=== PATIENT | female | born 1955 | race Caucasian/White ===

== ENCOUNTER 2017-02-16 12:36 | Emergency (ER) | payer MEDICAID ==
[~2017-02-16] VITALS: Ht 162.6 cm; Wt 81.6 kg
[2017-02-16 12:52] VITALS: BP 102/68
== END 2017-02-16 18:15 | disposition left against medical advice (07) ==
LOC: EDBD 12:36 → ER 12:51
DX: R53.1 Weakness (principal); Z53.21 Procedure and treatment not carried out due to patient leaving prior to being seen by health care provider
CPT/HCPCS: 71010; 93005

== ENCOUNTER 2020-04-11 20:04 | Inpatient (IN) | payer MEDICARE, MEDICAID ==
[~2020-04-11] VITALS: Ht 152.4 cm; Wt 110.6 kg
[2020-04-11 22:10] LABS: Basophils # (auto) 0 10 ^3/uL (0-0.2); Basophils % (auto) 0.5 % (0.0-2.0); Eosinophils # (auto) 0.1 10 ^3/uL (0-0.8); Eosinophils % (auto) 1.7 % (0.0-7.0); Hematocrit 39.1 % (36.0-46.0); Hemoglobin 13.3 g/dL (12.2-16.2); Lymphocytes # (auto) 0.7 10 ^3/uL (0.4-5.4); Lymphocytes % (auto) 11.5 % (10.0-50.0); Mean Corpuscular Hemoglobin 31.1 pg (28.0-32.0); Mean Corpuscular Hgb Conc. 34.1 g/dL (32.0-36.0); Mean Corpuscular Volume 91.2 fL (80.0-100.0); Monocytes # (auto) 0.5 10 ^3/uL (0-1.3); Monocytes % (auto) 7.6 % (0.0-12.0); Neutrophils # (auto) 4.6 10 ^3/uL (1.6-8.6); Neutrophils % (auto) 78.7 % (37.0-80.0); Nucleated Red Blood Cells % 1.2 %; Platelet Count (auto) 199 10^3/uL (140-450); Red Blood Cells 4.29 10^6/uL (4.0-5.20); Red Cell Distribution Width 15.1 % (11.8-14.3); White Blood Cell 5.9 10^3/uL (4.4-10.8)
[2020-04-11 22:30] LABS: Albumin 3.8 g/dL (3.4-5.0); Calcium 9.4 mg/dL (8.5-10.1); Potassium 4.2 mmol/L (3.5-5.1)
[2020-04-11 22:35] LABS: BUN/Creatinine Ratio 17.4; Bilirubin, Total 0.4 mg/dL (0.2-1.0); Total Protein 8.8 g/dL (6.4-8.2)
[2020-04-11 22:53] LABS: Urine Bacteria FEW /hpf (None Seen); Urine Blood 2+ /uL (Negative); Urine Specific Gravity 1.007 (1.001-1.035); Urine WBC 38 /hpf (0 - 5)
[2020-04-12] MEDS ORDERED: ONDANSETRON HCL 4 MG/2 ML VIAL IV ONE (01:00)
[2020-04-12] MEDS ORDERED: CIPROFLOXACIN 400MG/200ML 200 ML IV ONE (01:00)
[2020-04-12] MEDS ORDERED: AMLO-496 PO (01:16)
[2020-04-12] MEDS ORDERED: QUET25TA46 PO (01:16)
[2020-04-12] MEDS ORDERED: VANCOMYCIN 1GM/250ML 250 ML IV ONE (01:30)
[2020-04-12] MEDS ORDERED: PIPERACILLIN-TAZOB 3.375GM 100 ML IV ONE (01:30)
[2020-04-12] MEDS ORDERED: NITROGLYCERIN 0.4 MG SL TAB SL PRN (03:15)
[2020-04-12] MEDS: SODIUM CHLORIDE 0.9% 1,000 ML IV SCH ×3 (03:15→19:15)
[2020-04-12] MEDS ORDERED: ONDANSETRON HCL 4 MG/2 ML VIAL IV PRN (03:15)
[2020-04-12] MEDS ORDERED: MORPHINE SULF INJ 2 MG/ML SYRINGE 1ML IV PRN (03:15)
[2020-04-12] MEDS: ACETAMINOPHEN 325 MG TAB PO PRN (04:33)
[2020-04-12] MEDS: PIPERACILLIN-TAZOB 3.375GM 100 ML IV SCH ×4 (06:00→23:22)
[2020-04-12 10:20] LABS: Basophils # (auto) 0 10 ^3/uL (0-0.2); Basophils % (auto) 0.6 % (0.0-2.0); Eosinophils # (auto) 0.1 10 ^3/uL (0-0.8); Hematocrit 38.4 % (36.0-46.0); Hemoglobin 12.7 g/dL (12.2-16.2); Lymphocytes # (auto) 0.8 10 ^3/uL (0.4-5.4); Lymphocytes % (auto) 17.9 % (10.0-50.0); Mean Corpuscular Hgb Conc. 33.1 g/dL (32.0-36.0); Mean Corpuscular Volume 90.6 fL (80.0-100.0); Monocytes # (auto) 0.3 10 ^3/uL (0-1.3); Monocytes % (auto) 7.5 % (0.0-12.0); Neutrophils # (auto) 3.2 10 ^3/uL (1.6-8.6); Nucleated Red Blood Cells % 0.1 %; Platelet Count (auto) 217 10^3/uL (140-450); Red Blood Cells 4.24 10^6/uL (4.0-5.20); Red Cell Distribution Width 15.4 % (11.8-14.3); White Blood Cell 4.6 10^3/uL (4.4-10.8)
[2020-04-12 10:33] LABS: BUN/Creatinine Ratio 15.3; Calcium 8.9 mg/dL (8.5-10.1); Potassium 3.3 mmol/L (3.5-5.1)
[2020-04-12] MEDS ORDERED: IOHEXOL 300 MG/ML 100ML BOTTLE IJ ONE (15:16)
[2020-04-12] MEDS ORDERED: LIDOCAINE 2%HCL (LOCAL ANESTH.) INJ 20ML MDV ONE (15:16)
[2020-04-12 17:26] VITALS: BP 155/77
[2020-04-12] MEDS: MORPHINE SULF INJ 2 MG/ML SYRINGE 1ML IV PRN (20:15)
[2020-04-12 22:00] VITALS: BP 152/86
[2020-04-13] MEDS: SODIUM CHLORIDE 0.9% 1,000 ML IV SCH ×3 (03:15→19:15)
[2020-04-13 05:00] VITALS: BP 155/81
[2020-04-13] MEDS: PIPERACILLIN-TAZOB 3.375GM 100 ML IV SCH ×4 (07:00→23:50)
[2020-04-13 07:41] LABS: Basophils # (auto) 0 10 ^3/uL (0-0.2); Basophils % (auto) 0.4 % (0.0-2.0); Eosinophils # (auto) 0.2 10 ^3/uL (0-0.8); Eosinophils % (auto) 3.5 % (0.0-7.0); Hematocrit 38.9 % (36.0-46.0); Hemoglobin 12.9 g/dL (12.2-16.2); Lymphocytes # (auto) 0.6 10 ^3/uL (0.4-5.4); Mean Corpuscular Hemoglobin 30.3 pg (28.0-32.0); Mean Corpuscular Hgb Conc. 33.2 g/dL (32.0-36.0); Mean Corpuscular Volume 91.4 fL (80.0-100.0); Monocytes # (auto) 0.4 10 ^3/uL (0-1.3); Monocytes % (auto) 8.9 % (0.0-12.0); Neutrophils # (auto) 3.4 10 ^3/uL (1.6-8.6); Neutrophils % (auto) 73.2 % (37.0-80.0); Nucleated Red Blood Cells % 0.1 %; Platelet Count (auto) 224 10^3/uL (140-450); Red Blood Cells 4.25 10^6/uL (4.0-5.20); Red Cell Distribution Width 15.6 % (11.8-14.3); White Blood Cell 4.6 10^3/uL (4.4-10.8)
[2020-04-13 07:47] LABS: Calcium 8.8 mg/dL (8.5-10.1); Potassium 3.8 mmol/L (3.5-5.1)
[2020-04-13 07:49] LABS: BUN/Creatinine Ratio 12.2
[2020-04-13 09:11] VITALS: BP 114/59
[2020-04-13] MEDS ORDERED: amLODIPine BESYLATE 5 MG TAB PO ONE (12:30)
[2020-04-13 13:07] VITALS: BP 120/67
[2020-04-13 17:19] VITALS: BP 135/75
[2020-04-13 22:00] VITALS: BP 143/86
[2020-04-14] MEDS: SODIUM CHLORIDE 0.9% 1,000 ML IV SCH ×3 (03:15→18:20)
[2020-04-14 05:03] VITALS: BP 122/59
[2020-04-14] MEDS: PIPERACILLIN-TAZOB 3.375GM 100 ML IV SCH ×4 (06:31→23:19)
[2020-04-14] MEDS: MORPHINE SULF INJ 2 MG/ML SYRINGE 1ML IV PRN (06:43)
[2020-04-14 07:11] LABS: Basophils # (auto) 0 10 ^3/uL (0-0.2); Basophils % (auto) 0.8 % (0.0-2.0); Eosinophils # (auto) 0.2 10 ^3/uL (0-0.8); Eosinophils % (auto) 4.1 % (0.0-7.0); Hematocrit 37.9 % (36.0-46.0); Hemoglobin 12.5 g/dL (12.2-16.2); Mean Corpuscular Hemoglobin 30.8 pg (28.0-32.0); Mean Corpuscular Hgb Conc. 32.9 g/dL (32.0-36.0); Mean Corpuscular Volume 93.7 fL (80.0-100.0); Monocytes # (auto) 0.4 10 ^3/uL (0-1.3); Monocytes % (auto) 10.2 % (0.0-12.0); Neutrophils # (auto) 2.7 10 ^3/uL (1.6-8.6); Neutrophils % (auto) 61.9 % (37.0-80.0); Nucleated Red Blood Cells % 0.3 %; Platelet Count (auto) 181 10^3/uL (140-450); Red Blood Cells 4.04 10^6/uL (4.0-5.20); Red Cell Distribution Width 15.8 % (11.8-14.3); White Blood Cell 4.4 10^3/uL (4.4-10.8)
[2020-04-14 07:31] LABS: Calcium 9.1 mg/dL (8.5-10.1); Potassium 3.6 mmol/L (3.5-5.1)
[2020-04-14 07:41] LABS: BUN/Creatinine Ratio 12.5
[2020-04-14 09:00] VITALS: BP 139/73
[2020-04-14] MEDS: amLODIPine BESYLATE 5 MG TAB PO SCH (09:37)
[2020-04-14 12:42] VITALS: BP 144/72
[2020-04-14 17:13] VITALS: BP 130/78
[2020-04-14 22:12] VITALS: BP 109/59
[2020-04-15] MEDS: SODIUM CHLORIDE 0.9% 1,000 ML IV SCH ×3 (03:54→18:18)
[2020-04-15 04:50] VITALS: BP 135/60
[2020-04-15] MEDS: PIPERACILLIN-TAZOB 3.375GM 100 ML IV SCH ×3 (05:25→18:17)
[2020-04-15 07:03] LABS: Basophils # (auto) 0 10 ^3/uL (0-0.2); Basophils % (auto) 0.7 % (0.0-2.0); Eosinophils # (auto) 0.2 10 ^3/uL (0-0.8); Eosinophils % (auto) 4.5 % (0.0-7.0); Hematocrit 38.2 % (36.0-46.0); Hemoglobin 12.6 g/dL (12.2-16.2); Lymphocytes # (auto) 0.8 10 ^3/uL (0.4-5.4); Lymphocytes % (auto) 18.7 % (10.0-50.0); Monocytes # (auto) 0.4 10 ^3/uL (0-1.3); Monocytes % (auto) 10.1 % (0.0-12.0); Neutrophils # (auto) 2.9 10 ^3/uL (1.6-8.6); Nucleated Red Blood Cells % 0.2 %; Platelet Count (auto) 206 10^3/uL (140-450); Red Cell Distribution Width 15.3 % (11.8-14.3); White Blood Cell 4.4 10^3/uL (4.4-10.8)
[2020-04-15 07:20] LABS: Potassium 3.7 mmol/L (3.5-5.1)
[2020-04-15 07:25] LABS: BUN/Creatinine Ratio 13.4; Calcium 9.4 mg/dL (8.5-10.1)
[2020-04-15 09:11] VITALS: BP 151/70
[2020-04-15] MEDS: amLODIPine BESYLATE 5 MG TAB PO SCH (10:59)
[2020-04-15 13:00] VITALS: BP 140/69
[2020-04-15 17:00] VITALS: BP 125/53
[2020-04-15 22:00] VITALS: BP 134/71
[2020-04-16] MEDS: PIPERACILLIN-TAZOB 3.375GM 100 ML IV SCH ×3 (00:31→12:00)
[2020-04-16] MEDS: SODIUM CHLORIDE 0.9% 1,000 ML IV SCH ×2 (03:15→11:15)
[2020-04-16 05:00] VITALS: BP 149/69
[2020-04-16 09:00] VITALS: BP 144/90
[2020-04-16] MEDS: amLODIPine BESYLATE 5 MG TAB PO SCH (12:32)
[2020-04-16 13:01] VITALS: BP 130/83
[2020-04-16] MEDS: ACETAMINOPHEN 325 MG TAB PO PRN ×2 (16:23→22:38)
[2020-04-16 17:00] VITALS: BP 128/69
[2020-04-16] MEDS: CEPHALEXIN 250 MG CAP PO SCH ×2 (17:38→23:31)
[2020-04-16 22:04] VITALS: BP 148/86
[2020-04-17] MEDS: CEPHALEXIN 250 MG CAP PO SCH ×4 (05:33→23:48)
[2020-04-17 05:34] VITALS: BP 148/87
[2020-04-17 06:16] LABS: Basophils # (auto) 0 10 ^3/uL (0-0.2); Basophils % (auto) 0.9 % (0.0-2.0); Eosinophils # (auto) 0.2 10 ^3/uL (0-0.8); Eosinophils % (auto) 4.1 % (0.0-7.0); Hematocrit 39.1 % (36.0-46.0); Hemoglobin 13.2 g/dL (12.2-16.2); Lymphocytes # (auto) 1.1 10 ^3/uL (0.4-5.4); Lymphocytes % (auto) 21.2 % (10.0-50.0); Mean Corpuscular Hgb Conc. 33.8 g/dL (32.0-36.0); Mean Corpuscular Volume 91.6 fL (80.0-100.0); Monocytes # (auto) 0.5 10 ^3/uL (0-1.3); Monocytes % (auto) 8.8 % (0.0-12.0); Neutrophils # (auto) 3.4 10 ^3/uL (1.6-8.6); Nucleated Red Blood Cells % 0.3 %; Platelet Count (auto) 215 10^3/uL (140-450); Red Blood Cells 4.26 10^6/uL (4.0-5.20); Red Cell Distribution Width 15.1 % (11.8-14.3); White Blood Cell 5.3 10^3/uL (4.4-10.8)
[2020-04-17 06:33] LABS: INR 0.97 (0.9-1.15)
[2020-04-17 06:47] LABS: Potassium 3.6 mmol/L (3.5-5.1)
[2020-04-17 06:52] LABS: BUN/Creatinine Ratio 19.7; Calcium 9.4 mg/dL (8.5-10.1)
[2020-04-17 09:00] VITALS: BP 148/74
[2020-04-17] MEDS: amLODIPine BESYLATE 5 MG TAB PO SCH (09:58)
[2020-04-17 13:10] VITALS: BP 139/70
[2020-04-17 17:09] VITALS: BP 125/80
[2020-04-17 22:00] VITALS: BP 126/53
[2020-04-18] MEDS: ACETAMINOPHEN 325 MG TAB PO PRN (00:22)
[2020-04-18 04:29] VITALS: BP 118/74
[2020-04-18] MEDS: CEPHALEXIN 250 MG CAP PO SCH ×3 (05:28→18:56)
[2020-04-18 05:42] LABS: Basophils # (auto) 0 10 ^3/uL (0-0.2); Basophils % (auto) 0.6 % (0.0-2.0); Eosinophils # (auto) 0.2 10 ^3/uL (0-0.8); Eosinophils % (auto) 3.5 % (0.0-7.0); Hematocrit 40.8 % (36.0-46.0); Hemoglobin 13.9 g/dL (12.2-16.2); Lymphocytes # (auto) 1.3 10 ^3/uL (0.4-5.4); Lymphocytes % (auto) 20.2 % (10.0-50.0); Mean Corpuscular Hemoglobin 30.8 pg (28.0-32.0); Mean Corpuscular Volume 90.8 fL (80.0-100.0); Monocytes # (auto) 0.5 10 ^3/uL (0-1.3); Monocytes % (auto) 8.3 % (0.0-12.0); Neutrophils # (auto) 4.3 10 ^3/uL (1.6-8.6); Neutrophils % (auto) 67.4 % (37.0-80.0); Nucleated Red Blood Cells % 0.2 %; Platelet Count (auto) 245 10^3/uL (140-450); Red Blood Cells 4.49 10^6/uL (4.0-5.20); Red Cell Distribution Width 14.8 % (11.8-14.3); White Blood Cell 6.4 10^3/uL (4.4-10.8)
[2020-04-18 05:54] LABS: BUN/Creatinine Ratio 17.4; Calcium 9.8 mg/dL (8.5-10.1); Potassium 4.3 mmol/L (3.5-5.1)
[2020-04-18 08:00] VITALS: BP 137/64
[2020-04-18 08:54] VITALS: BP 137/64
[2020-04-18] MEDS: amLODIPine BESYLATE 5 MG TAB PO SCH (09:55)
[2020-04-18 12:42] VITALS: BP 126/65
[2020-04-18 16:47] VITALS: BP 140/61
[2020-04-18 22:31] VITALS: BP 113/71
[2020-04-19] MEDS: CEPHALEXIN 250 MG CAP PO SCH ×5 (00:49→23:08)
[2020-04-19 04:51] VITALS: BP 143/63
[2020-04-19 08:50] VITALS: BP 134/76
[2020-04-19] MEDS: amLODIPine BESYLATE 5 MG TAB PO SCH (09:07)
[2020-04-19 13:00] VITALS: BP 140/73
[2020-04-19 16:38] VITALS: BP 123/71
[2020-04-19 22:00] VITALS: BP 141/63
[2020-04-20 05:00] VITALS: BP 132/67
[2020-04-20] MEDS: CEPHALEXIN 250 MG CAP PO SCH (05:04)
[2020-04-20] MEDS: amLODIPine BESYLATE 5 MG TAB PO SCH (08:39)
[2020-04-20 08:56] VITALS: BP 141/88
== END 2020-04-20 09:55 | disposition left against medical advice (07) | DRG 698 ==
LOC: EDBD 20:04 → ER 20:10 → TELE 20:11 → DOU IN ADS 04-12 17:14 → EAST 04-15 01:22 → TELE-E-ADS 04-15 01:29 → TELE-WESTW 04-15 15:25
PROVIDERS: ADMIT Internal Medicine; ATTEND Internal Medicine
PROC: 0T25X0Z Change Drainage Device in Kidney, External Approach (ICD-10-PCS; principal; 2020-04-12)
PROC: BT111ZZ Fluoroscopy of Right Kidney using Low Osmolar Contrast (ICD-10-PCS; 2020-04-12)
PROC: 05HD33Z Insertion of Infusion Device into Right Cephalic Vein, Percutaneous Approach (ICD-10-PCS; 2020-04-16)
PROC: B54MZZA Ultrasonography of Right Upper Extremity Veins, Guidance (ICD-10-PCS; 2020-04-16)
DX: T83.092A Other mechanical complication of nephrostomy catheter, initial encounter (principal); N17.0 Acute kidney failure with tubular necrosis; E87.1 Hypo-osmolality and hyponatremia; N13.6 Pyonephrosis; N20.2 Calculus of kidney with calculus of ureter; N13.9 Obstructive and reflux uropathy, unspecified; E66.9 Obesity, unspecified; E87.6 Hypokalemia; F32.9 Major depressive disorder, single episode, unspecified; Z20.822 Contact with and (suspected) exposure to COVID-19; I12.9 Hypertensive chronic kidney disease with stage 1 through stage 4 chronic kidney disease, or unspecified chronic kidney disease; K80.20 Calculus of gallbladder without cholecystitis without obstruction; Y73.2 Prosthetic and other implants, materials and accessory gastroenterology and urology devices associated with adverse incidents; E21.3 Hyperparathyroidism, unspecified; Z85.528 Personal history of other malignant neoplasm of kidney; Z90.5 Acquired absence of kidney; Z90.710 Acquired absence of both cervix and uterus; Z92.21 Personal history of antineoplastic chemotherapy; Z88.5 Allergy status to narcotic agent; Z88.2 Allergy status to sulfonamides; Z88.1 Allergy status to other antibiotic agents; N18.31 Chronic kidney disease, stage 3a
CPT/HCPCS: 36415; 74176; 75984; 80048; 80053; 81001; 83605; 84443; 85025; 85610; 87040; 87086; 87426; 96365; 96366; 97163; G0378; J2543

== ENCOUNTER 2020-04-20 11:59 | Emergency (ER) | payer MEDICARE, MEDICAID ==
[~2020-04-20] VITALS: Ht 149.9 cm; Wt 108.9 kg
[~2020-04-20 11:59] MED LIST: AMLO-496 PO; QUET25TA46 PO
[2020-04-20 12:37] LABS: Basophils # (auto) 0.1 10 ^3/uL (0-0.2); Eosinophils # (auto) 0.1 10 ^3/uL (0-0.8); Eosinophils % (auto) 1.9 % (0.0-7.0); Hematocrit 40.8 % (36.0-46.0); Hemoglobin 14.1 g/dL (12.2-16.2); Mean Corpuscular Hemoglobin 31.1 pg (28.0-32.0); Mean Corpuscular Hgb Conc. 34.4 g/dL (32.0-36.0); Mean Corpuscular Volume 90.3 fL (80.0-100.0); Monocytes # (auto) 0.7 10 ^3/uL (0-1.3); Monocytes % (auto) 9.8 % (0.0-12.0); Neutrophils # (auto) 5.6 10 ^3/uL (1.6-8.6); Neutrophils % (auto) 74.3 % (37.0-80.0); Platelet Count (auto) 260 10^3/uL (140-450); Red Blood Cells 4.53 10^6/uL (4.0-5.20); Red Cell Distribution Width 14.9 % (11.8-14.3); White Blood Cell 7.6 10^3/uL (4.4-10.8)
[2020-04-20 12:58] LABS: Albumin 3.9 g/dL (3.4-5.0); Anion Gap 8 (5-15); Blood Alcohol < 3.0 mg/dL (0-5); Blood Urea Nitrogen 35 mg/dL (7-18); Calcium 9.8 mg/dL (8.5-10.1); Carbon Dioxide 21 mmol/L (21-32); Chloride 106 mmol/L (98-107); Glucose 125 mg/dL (74-106); Potassium 3.8 mmol/L (3.5-5.1); Sodium 135 mmol/L (136-145)
[2020-04-20 13:03] LABS: Alanine Aminotransferase 46 U/L (13-56); Alkaline Phosphatase 116 U/L (45-117); Aspartate Aminotransferase 27 U/L (15-37); BUN/Creatinine Ratio 25.9; Bilirubin, Total 0.4 mg/dL (0.2-1.0); GFR African American 51 mL/min; GFR Non-African American 42 mL/min; Total Protein 9.5 g/dL (6.4-8.2)
[2020-04-20 14:37] LABS: Urine Bacteria MOD /hpf (None Seen); Urine Blood 3+ /uL (Negative); Urine Specific Gravity 1.015 (1.001-1.035); Urine WBC 23 /hpf (0 - 5)
[2020-04-20] MEDS: NITROFURANTOIN 100 mg CAP PO ONE (15:00)
[2020-04-20 16:06] LABS: Alcohol, Urine < 3.0 mg/dL (0-10); Amphetamine Screen, Urine NEGATIVE (NEGATIVE); Barbiturate Scree,Urine NEGATIVE (NEGATIVE); Benzodiazephine Screen, Urine NEGATIVE (NEGATIVE); Cannabinoid Screen, Urine NEGATIVE (NEGATIVE); Cocaine Screen, Urine NEGATIVE (NEGATIVE); Opiate Scree,Urine NEGATIVE (NEGATIVE); Phencyclidine Screen, Urine NEGATIVE (NEGATIVE)
[2020-04-21 10:28] VITALS: BP 156/83
== END 2020-04-21 12:16 | disposition home or self-care (01) ==
LOC: ER 11:59
DX: T14.91XA Suicide attempt, initial encounter (principal); S10.93XA Contusion of unspecified part of neck, initial encounter; F32.9 Major depressive disorder, single episode, unspecified; N39.0 Urinary tract infection, site not specified; I12.9 Hypertensive chronic kidney disease with stage 1 through stage 4 chronic kidney disease, or unspecified chronic kidney disease; N18.9 Chronic kidney disease, unspecified; I10 Essential (primary) hypertension; Z87.440 Personal history of urinary (tract) infections; Z87.442 Personal history of urinary calculi; Y28.8XXA Contact with other sharp object, undetermined intent, initial encounter; Y93.89 Activity, other specified; Y92.89 Other specified places as the place of occurrence of the external cause; Y99.8 Other external cause status
CPT/HCPCS: 36415; 80053; 80307; 80320; 80329; 81001; 85025; 87086